=== PATIENT | male | born 1980 | race African-American/Black ===

== ENCOUNTER 2024-05-28 03:23 | Observation (INO) | payer OTHER ==
[2024-05-28 03:40] LABS: BASOPHILS ABSOLUTE AUTO 0.04 K/uL (0.00-0.20); BASOPHILS PERCENT AUTO 0.5 % (0.0-1.0); EOSINOPHILS ABSOLUTE AUTO 0.28 K/uL (0.00-0.45); EOSINOPHILS PERCENT AUTO 3.4 % (0.0-6.0); HEMATOCRIT 40.7 % (42.0-52.0); HEMOGLOBIN 14.1 g/dL (14.0-18.0); IMMATURE GRAN ABSOLUTE AUTO 0.05 K/uL (0.00-0.05); IMMATURE GRAN PERCENT AUTO 0.6 % (0.0-0.4); LYMPHOCYTES PERCENT AUTO 36.7 % (24.0-44.0); MEAN CORPUSCULAR HGB CONC 34.6 g/dL (32.0-36.0); MEAN CORPUSCULAR VOLUME 92.5 fL (83.0-99.0); MEAN PLATELET VOLUME 8.9 fL (9.4-12.4); MONOCYTES ABSOLUTE AUTO 0.69 K/uL (0.00-0.80); MONOCYTES PERCENT AUTO 8.4 % (0.0-8.0); NEUTROPHILS ABSOLUTE AUTO 4.11 K/uL (1.80-7.70); NEUTROPHILS PERCENT AUTO 50.4 % (41.0-71.0); PLATELET COUNT,PLT 194 K/uL (150-400); WHITE BLOOD CELL COUNT,WBC 8.17 K/uL (3.9-11.3)
[2024-05-28] MEDS: Aspirin 81 MG Tab.Chew PO ONE (03:43)
[2024-05-28] MEDS: Sodium Chloride 0.9% 2.5 ML Syringe FLUSH PRN (03:44)
[2024-05-28] MEDS: Sodium Chloride 0.9% 10 ML Syringe FLUSH PRN (03:44)
[2024-05-28] MEDS: Nitroglycerin 0.4 MG Tab.SL SL PRN (03:45)
[2024-05-28 03:55] LABS: D-DIMER QUANTITATIVE 0.67 mg/L FEU (0.00-0.50); INR 1.19 (0.86-1.11)
[2024-05-28 04:04] LABS: A/G RATIO 0.9 (0.9-1.6); ALBUMIN 3.2 g/dL (3.4-5.0); BILIRUBIN TOTAL 0.4 mg/dL (0.2-1.0); CALCIUM 8.9 mg/dL (8.5-10.1); CARBON DIOXIDE,CO2 27.4 mmol/L (21.0-32.0); EST CRCL DRUG DOSING (CG) 98.31 mL/min; POTASSIUM,K 4.5 mmol/L (3.5-5.1); PROTEIN TOTAL,TP 6.7 g/dL (6.4-8.2)
[2024-05-28] MEDS: Iopamidol 755 MG/ML 500 ML Multipack Bottle IVPUSH STA (04:25)
[2024-05-28 06:23] LABS: AMPHETAMINES SCREEN, URINE NEGATIVE (CUTOFF=500); BARBITURATE SCREEN,URINE NEGATIVE (CUTOFF=200); BENZODIAZEPINES SCREEN,URINE NEGATIVE (CUTOFF=150); BUPRENORPHINE SCREEN,URINE NEGATIVE (CUTOFF=10); METHADONE SCREEN, URINE NEGATIVE (CUTOFF=200); METHAMPHETAMINES SCREEN, URINE NEGATIVE (CUTOFF=500); OXYCODONE SCREEN,URINE NEGATIVE (CUT0FF=100); PCP SCREEN,URINE NEGATIVE (CUTOFF=25); THC SCREEN,URINE 20 NG/ML NEGATIVE (CUTOFF=50)
[2024-05-28] MEDS ORDERED: Ondansetron 4 MG Tab.DIS PO PRN (08:27)
[2024-05-28 10:19] LABS: C-REACTIVE PROTEIN 0.12 mg/dL (<0.3)
[2024-05-28 10:40] LABS: HEMOGLOBIN A1C 5.6 %
[2024-05-28] MEDS: Acetaminophen 325 MG Tab PO PRN (16:08)
== END 2024-05-28 18:31 | disposition home or self-care (01) ==
LOC: MW.ED 03:23 → MW.MS 07:33
PROVIDERS: ADMIT Family Medicine; ATTEND Family Medicine
DX: R07.9 Chest pain, unspecified (principal); Z79.899 Other long term (current) drug therapy; Z88.0 Allergy status to penicillin
CPT/HCPCS: 36415; 71045; 71275; 80053; 80061; 80305; 83036; 83880; 84484; 85025; 85379; 85610; 85652; 86140; 87389; 93005; 93306; 93971; 99285; A9270; J3490; Q9967; G0378

== ENCOUNTER 2024-08-01 11:21 | Emergency (ER) | payer OTHER ==
[2024-08-01] MEDS: Ondansetron 4 MG Tab.DIS PO ONE (12:29)
== END 2024-08-01 13:46 | disposition home or self-care (01) ==
LOC: MW.ED 11:21
DX: Z02.89 Encounter for other administrative examinations (principal); Z88.0 Allergy status to penicillin; Z88.1 Allergy status to other antibiotic agents; Z75.8 Other problems related to medical facilities and other health care
CPT/HCPCS: 99283; A9270

== ENCOUNTER 2024-09-17 01:00 | Emergency (ER) | payer OTHER, MEDICAID | END 2024-09-17 03:18 | disposition home or self-care (01) | LOC: MW.ED 01:00 | DX: R21 Rash and other nonspecific skin eruption (principal); L40.9 Psoriasis, unspecified; L29.9 Pruritus, unspecified; Z48.03 Encounter for change or removal of drains; Z88.1 Allergy status to other antibiotic agents; Z88.0 Allergy status to penicillin | CPT/HCPCS: 99282; 99283 ==

== ENCOUNTER 2024-09-23 15:16 | Emergency (ER) | payer MEDICAID, OTHER | END 2024-09-23 16:02 | disposition home or self-care (01) | LOC: MW.ED 15:16 | DX: L40.9 Psoriasis, unspecified (principal); Z88.1 Allergy status to other antibiotic agents; Z88.0 Allergy status to penicillin | CPT/HCPCS: 99281 ==